=== PATIENT | female | born 1970 | race Two or more races ===

== ENCOUNTER 2019-09-17 07:08 | Emergency (ER) | payer OTHER ==
[~2019-09-17] VITALS: Ht 142.2 cm; Wt 68.0 kg
[2019-09-17 07:28] VITALS: BP 150/89
[2019-09-17] MEDS ORDERED: ACETAMINOPHEN 500 MG TAB PO ONE (08:15)
== END 2019-09-17 09:33 | disposition home or self-care (01) ==
LOC: ER 07:08 → EDBD 07:08 → ER 09:33
DX: S39.012A Strain of muscle, fascia and tendon of lower back, initial encounter (principal); V43.63XA Car passenger injured in collision with pick-up truck in traffic accident, initial encounter; Y93.89 Activity, other specified; Y92.410 Unspecified street and highway as the place of occurrence of the external cause; Y99.8 Other external cause status
CPT/HCPCS: 72220